=== PATIENT | female | born 1975 | race Caucasian/White ===

== ENCOUNTER 2019-02-17 11:41 | Inpatient (IN) ==
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
[2019-02-17 12:22] LABS: Basophils # 0.1 K/mcL (0.0-0.2); Basophils % 0.6 %; Eosinophils # 0.1 K/mcL (0.0-0.6); Eosinophils % 1.3 %; Hematocrit 37.3 % (35.3-44.9); Hemoglobin 10.9 g/dL (11.5-15.4); Immature Granulocytes % 0.3 % (0-4); Lymphocytes # 1.4 K/mcL (0.6-4.6); Lymphocytes % 18.3 %; Mean Corpuscular HGB Conc 29.2 g/dL (31.6-35.5); Mean Corpuscular Hemoglobin 21.9 pg (28.0-33.3); Mean Corpuscular Volume 74.9 fL (83.0-100.0); Mean Platelet Volume 12.3 fL (9.4-12.4); Monocytes # 0.4 K/mcL (0.0-1.3); Monocytes % 5.5 %; Neutrophils # 5.8 K/mcL (1.6-8.9); Platelet Count 290 K/mcL (140-400); Red Blood Count 4.98 M/mcL (3.82-4.97); Red Cell Distribution Width 15.9 % (11.5-14.5); White Blood Count 7.9 K/mcL (4.3-11.1)
[2019-02-17 12:43] LABS: Acetaminophen < 10 mcg/mL (10-20); BUN/Creatinine Ratio 16 (6-26); Blood Urea Nitrogen 13 mg/dL (6-20); Calcium 9.6 mg/dL (8.6-10.3); Carbon Dioxide 22 mEq/L (23-29); Chloride 102 mEq/L (98-107); Ethanol < 10 mg/dL (Less than 10); Glucose 81 mg/dL (70-105); Osmolality,Calculated 283 (280-300); Potassium 3.4 mEq/L (3.5-5.1); Salicylate < 2.5 mg/dL (15.0-30.0); Sodium 137 mEq/L (136-145); eGFR For African Americans > 60 (> 60); eGFR For Non-African Americans > 60 (> 60)
[2019-02-17 13:47] LABS: Bilirubin,Urine Negative (Negative); Blood,Urine Negative (Negative); Clarity,Urine Clear (Clear); Color,Urine Yellow (Yellow); Glucose,Urine (UA) Normal (Normal); Ketones,Urine 40 mg/dL (Negative); Leukocyte Esterase,Urine Negative (Negative); Nitrite,Urine Negative (Negative); PH,Urine 5.5 pH Units (5.0-8.0); Protein,Urine Negative (Neg-Trace); Specific Gravity,Urine 1.009 (1.010-1.025); Urobilinogen,Urine Normal (Normal)
[2019-02-17 13:53] LABS: Amphetamine Screen,Urine Negative ng/mL (Cutoff=1000); Barbiturate Screen,Urine Negative ng/mL (Cutoff=200); Benzodiazepines Screen,Urine Negative ng/mL (Cutoff=200); Cannabinoid Screen,Urine Negative ng/mL (Cutoff = 50); Cocaine Screen,Urine Negative ng/mL (Cutoff= 300); Opiate Screen,Urine Negative ng/mL (Cutoff=300); Phencyclidine Screen,Urine Negative ng/mL (Cutoff=25)
[2019-02-17] MEDS ORDERED: Mag Hydrox/Al Hydrox/Simeth 30 ML UDC PO PRN (14:26)
[2019-02-17] MEDS ORDERED: MOM Conc 10 ML UD.LIQ PO PRN (14:26)
[2019-02-17] MEDS ORDERED: Haloperidol Lactate 5 MG/ML VIAL IM PRN (14:26)
[2019-02-17] MEDS ORDERED: *HR* LORazepam 2 MG/ML VIAL IM PRN (14:26)
[2019-02-17] MEDS ORDERED: *HR* LORazepam 1 MG TABLET PO PRN (14:26)
[2019-02-17] MEDS: Acetaminophen 325 MG TABLET PO PRN (21:34)
[2019-02-17] MEDS: traZODone 50 MG TABLET PO PRN (21:34)
[2019-02-17] MEDS: hydrOXYzine pamoate 25 MG CAPSULE PO PRN (21:34)
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
--- NOTE | 2019-02-19 11:14 | Psychiatry Progress Note ---
Date of Encounter: 02/19/19 Time of Encounter: 10:55 Subjective Interval history: Patient tolerated Zoloft. She continues to report depression with sad mood, decreased interest, feelings of guilt and worthlessness, low energy, and suicidal ideations. She is scared about what her future holds. 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 She says her family tells her to kill herself. Review of Systems Psychiatric: Reports: depression, anxiety, abnormal sleep pattern, suicidal ideation, anhedonia. Denies: homicidal ideation, auditory hallucinations, visual hallucinations Results - Vital Signs Vital Signs: Temp Pulse Resp BP Pulse Ox 97.4 F L 110 14 138/91 97 02/19/19 09:00 02/19/19 09:00 02/19/19 09:00 02/19/19 09:00 02/19/19 09:00 - Impressions ITS Impressions Head CT 02/17/19 12:17 IMPRESSION: No acute intracranial abnormality. Subcutaneous soft tissue swelling of the right forehead scalp. D/ / Ramy Sanchez MD / Ramy Sanchez MD Interpreting Provider: Ramy Sanchez MD Assessment and Plan (1) Major depressive disorder, recurrent, severe with psychotic features Current visit: No Status: Acute Plan: Continue hospitalization, Close observation, Suicide Precautions per unit protocol, Encourage participation in unit milieu, Group Therapy, Monitor sleep, Monitor appetite Additional Plan: Increase Zoloft to 50 mg by mouth every morning, encourage group therapy, Risks, benefits, side effects, alternatives discussed w/pt: Yes Patient agreeable to treatment: Yes Consult Discharge Plan - Plan Psychiatry Exam - Constitutional Vitals: Temp Pulse Resp BP Pulse Ox 97.4 F L 110 14 138/91 97 02/19/19 09:00 02/19/19 09:00 02/19/19 09:00 02/19/19 09:00 02/19/19 09:00 General appearance: disheveled - Musculoskeletal Gait: slow Station: stooped Strength & Tone: mild weakness - Psychiatric Patient Orientation: Yes Person, Yes Time, Yes Place, Yes Circumstance Level of alertness: Alert Behavior: tearful Psychomotor activity: Slowed Eye Contact: Minimal Contact Mood Description: Depressed Patient description of mood: Sad Affect description: tearful, dysphoric Speech Volume: Soft/Quiet Speech pattern: slowed Language & Vocabulary: consistent with education Thought Process: Linear, Goal Oriented Thought Content: Yes Suicidal ideation, No Homicidal ideation, No Overt delusions Perceptual Disturbances: No Auditory hallucinations, No Visual hallucinations Attention Span Ability: Capable of Focused Attention Memory Description: Grossly Intact Patient Reliability: Reliable Historian Fund of knowledge: Yes abstraction ability, Yes aware of current events Intelligence Estimate: Average Judgment: Limited Insight: Minimal
[2019-02-20] MEDS ORDERED: Fluconazole 100 MG TABLET PO ONE (09:21)
--- NOTE | 2019-02-20 09:21 | Psychiatry Progress Note ---
Date of Encounter: 02/20/19 Time of Encounter: 07:40 Subjective Interval history: Patient is reporting urinary discomfort with urgency as well as a discharge and odor. She says in the past she has had both urinary tract infections as well as chronic yeast infections for which she often gets Diflucan. She reports sad mood, decreased interest, feelings of guilt and worthlessness, low energy. She is mostly withdrawn to her room. She reports ongoing hopelessness and feeling there is no point in living. She is scared to have to go back to the [employer]. She reports 10 out of 10 anxiety and 8 out of 10 depression. Review of Systems Psychiatric: Reports: depression, anxiety, abnormal sleep pattern, suicidal ideation, anhedonia. Denies: homicidal ideation, auditory hallucinations, visual hallucinations Results - Vital Signs Vital Signs: Temp Pulse Resp BP Pulse Ox 97.8 F 88 16 137/85 97 02/19/19 20:53 02/19/19 20:53 02/19/19 20:53 02/19/19 20:53 02/19/19 20:53 - Impressions ITS Impressions Head CT 02/17/19 12:17 IMPRESSION: No acute intracranial abnormality. Subcutaneous soft tissue swelling of the right forehead scalp. D/ / Ramy Sanchez MD / Ramy aSnchez MD Interpreting Provider: Ramy Sanchez MD Assessment and Plan (1) Major depressive disorder, recurrent, severe with psychotic features Current visit: No Status: Acute Plan: Continue hospitalization, Close observation, Suicide Precautions per unit protocol, Encourage participation in unit milieu, Group Therapy, Monitor sleep, Monitor appetite Additional Plan: Zoloft was increased to 50 mg daily yesterday. We will continue this and consider further increase if needed. Encourage group attendance. We will check urinalysis to see if she has a UTI. We will go ahead and presumptively treated with Diflucan 150 by mouth 1 for possible yeast infection. Risks, benefits, side effects, alternatives discussed w/pt: Yes Patient agreeable to treatment: Yes Consult Discharge Plan - Plan Referrals: NONE,PCP [Primary Care Provider] - Psychiatry Exam - Constitutional Vitals: Temp Pulse Resp BP Pulse Ox 97.8 F 88 16 137/85 97 02/19/19 20:53 02/19/19 20:53 02/19/19 20:53 02/19/19 20:53 02/19/19 20:53 General appearance: disheveled - Musculoskeletal Gait: slow, unsteady Station: stooped Strength & Tone: mild weakness - Psychiatric Patient Orientation: Yes Person, Yes Time, Yes Place, Yes Circumstance Level of alertness: Alert Behavior: anxious Psychomotor activity: Slowed Eye Contact: Minimal Contact Mood Description: Depressed, Anxious Patient description of mood: Anxious Affect description: dysphoric, anxious Speech Volume: Soft/Quiet Speech pattern: slowed, mumbled Thought Process: Goal Oriented Thought Content: Yes Suicidal ideation Perceptual Disturbances: No Auditory hallucinations, No Visual hallucinations Attention Span Ability: Capable of Focused Attention Memory Description: Grossly Intact Patient Reliability: Reliable Historian Fund of knowledge: Yes abstraction ability, Yes aware of current events Intelligence Estimate: Average Judgment: Limited Insight: Minimal
[2019-02-20 11:52] LABS: Bilirubin,Urine Negative (Negative); Blood,Urine Trace (Negative); Clarity,Urine Cloudy (Clear); Color,Urine Yellow (Yellow); Glucose,Urine (UA) Normal (Normal); Ketones,Urine Negative (Negative); Leukocyte Esterase,Urine Large (Negative); Nitrite,Urine Negative (Negative); Protein,Urine Negative (Neg-Trace); Specific Gravity,Urine 1.011 (1.010-1.025); Urobilinogen,Urine Normal (Normal)
[2019-02-20 12:02] LABS: RBC,Urine 0-3 per hpf (0-3); Squamous Epithelial Cell,Urine Few per lpf (None-Few); WBC,Urine 30-50 per hpf (0-3)
[2019-02-20 12:03] LABS: Bacteria,Urine Moderate per hpf (None-Few)
[2019-02-20] MEDS: Acetaminophen 325 MG TABLET PO PRN (18:53)
[2019-02-20] MEDS: hydrOXYzine pamoate 25 MG CAPSULE PO PRN (21:12)
[2019-02-20] MEDS: traZODone 50 MG TABLET PO PRN (21:12)
--- NOTE | 2019-02-21 11:48 | Psychiatry Progress Note ---
Date of Encounter: 02/21/19 Time of Encounter: 11:46 Subjective Interval history: Client reports she is feeling much better. Continues to endorse anxiety/panic attacks but reports depression has improved. Now denying SI, intent, or plan. Feels Zoloft is helping. Discussed prn Vistaril for acute anxiety and client states she will try this today. Sleeping well with Trazodone. Homeless but willing to go to a group home. "I don't think I'm better than anybody else." Thinks she may be ready for discharge tomorrow. Review of Systems Constitutional: Denies: fever, chills, weakness, weight change Eyes: Denies: eye pain, vision change Ears, Nose, Throat: Denies: ear pain, throat pain, dental pain, hearing loss, congestion Cardiovascular: Denies: chest pain, palpitations, dyspnea on exertion Respiratory: Denies: cough, dyspnea, wheezes Gastrointestinal: Denies: abdominal pain, nausea, vomiting, diarrhea, constipation Musculoskeletal: Denies: joint swelling, joint pain Neurological: Denies: headache, weakness, numbness, memory loss Psychiatric: Reports: depression, anxiety, abnormal sleep pattern, suicidal ideation, anhedonia. Denies: homicidal ideation, auditory hallucinations, visual hallucinations Results - Vital Signs Vital Signs: Temp Pulse Resp BP Pulse Ox 97.3 F L 95 18 129/78 99 02/21/19 09:00 02/21/19 09:00 02/21/19 09:00 02/21/19 09:00 02/21/19 09:00 - Labs Labs: Laboratory Results - last 24 hr 02/20/19 11:45 Urine Color Yellow Urine Clarity Cloudy A Urine pH 6.0 Ur Specific [place] 1.011 Urine Protein Negative Urine Glucose (UA) Normal Urine Ketones Negative Urine Blood Trace H Urine Nitrite Negative Urine Bilirubin Negative Urine Urobilinogen Normal Ur Leukocyte Esterase Large H Urine Microscopic RBC 0-3 Urine Microscopic WBC 30-50 H Ur Squamous Epith Cells Few Urine Bacteria Moderate H Ur Culture Indicated? YES A - Impressions ITS Impressions Head CT 02/17/19 12:17 IMPRESSION: No acute intracranial abnormality. Subcutaneous soft tissue swelling of the right forehead scalp. D/ / Ramy Sanchez MD / Ramy Sanchez MD Interpreting Provider: Ramy Sanchez MD Assessment and Plan (1) Major depress dis, severe Current visit: Yes Status: Acute Plan: Continue hospitalization, Close observation, Suicide Precautions per unit protocol, Encourage participation in unit milieu, Group Therapy, Monitor sleep, Monitor appetite Risks, benefits, side effects, alternatives discussed w/pt: Yes Patient agreeable to treatment: Yes Consult Discharge Plan - Plan Referrals: [facility] Sol[email or web address] [Outside] - 03/09/19 10:30 am (Your appointment is with Mike Butler for counseling. Please bring the packet of information given to you at discharge from , with you to this appointment. ) Psychiatry Exam - Constitutional Vitals: Temp Pulse Resp BP Pulse Ox 97.3 F L 95 18 129/78 99 02/21/19 09:00 02/21/19 09:00 02/21/19 09:00 02/21/19 09:00 02/21/19 09:00 General appearance: obese - Musculoskeletal Gait: slow Station: relaxed Strength & Tone: normal for patient - Psychiatric Patient Orientation: Yes Person, Yes Time, Yes Place Level of alertness: Alert Behavior: calm, cooperative Psychomotor activity: Normal Eye Contact: Maintains Eye Contact Mood Description: Anxious Affect description: congruent with mood Speech Volume: Normal Speech pattern: normal rate, normal rhythm, normal tone, fluent, spontaneous Language & Vocabulary: consistent with education Thought Process: Linear, Goal Oriented Thought Content: No Suicidal ideation, No Homicidal ideation, No Overt delusions Perceptual Disturbances: No Auditory hallucinations, No Visual hallucinations Attention Span Ability: Capable of Focused Attention Memory Description: Grossly Intact Patient Reliability: Reliable Historian Fund of knowledge: Yes abstraction ability, Yes aware of current events Intelligence Estimate: Average Judgment: Fair Insight: Partial
[2019-02-21] MEDS: hydrOXYzine pamoate 25 MG CAPSULE PO PRN (16:13)
[2019-02-21] MEDS: traZODone 50 MG TABLET PO PRN (20:26)
[2019-02-22] MEDS: hydrOXYzine pamoate 25 MG CAPSULE PO PRN (08:56)
[2019-02-22 09:15] VITALS: BP 131/87
--- NOTE | 2019-02-22 12:43 | Discharge Summary ---
Date of Encounter: 02/22/19 Time of Encounter: 12:41 Diagnosis - Discharge Diagnosis (1) Major depress dis, severe Status: Acute Medications - Discharge Medications Prescriptions: traZODone [TraZODone] 50 mg PO HS PRN #30 tablet PRN Reason: Insomnia Transmission Status: Pending to [facility] hydrOXYzine pamoate [Vistaril] 25 mg PO TID PRN #90 capsule PRN Reason: Anxiety Transmission Status: Pending to [facility] Sertraline [Zoloft] 50 mg PO DAILY #30 tablet Transmission Status: Pending to [facility] Sertraline [Zoloft] 50 mg PO DAILY #30 tablet 02/22/19 [Rx] hydrOXYzine pamoate [Vistaril] 25 mg PO TID PRN #90 capsule 02/22/19 [Rx] traZODone [TraZODone] 50 mg PO HS PRN #30 tablet 02/22/19 [Rx] Allergy/AdvReac Type Severity Reaction Status Date / Time No Known Allergies Allergy Verified 02/17/19 14:33 Results Procedures and tests throughout hospitalization: Completed Lab Orders Category Date Time Status Acetaminophen Stat Lab 02/17/19 12:00 Completed Basic Metabolic Panel Stat Lab 02/17/19 12:00 Completed Complete Blood Count [HEME] Stat Lab 02/17/19 12:00 Completed Drug Screen, Urine [UCHEM] Stat Lab 02/17/19 13:33 Completed Ethanol Stat Lab 02/17/19 12:00 Completed Test Result, Urine [URIN] Stat Lab 02/17/19 13:33 Completed Salicylate Stat Lab 02/17/19 12:00 Completed Urinalysis Reflex Cult & Micro [URIN] Routine Lab 02/20/19 11:45 Completed Urinalysis reflex Microscopic [URIN] Stat Lab 02/17/19 13:33 Completed Completed Imaging Orders Category Date Time Status CT head/brain wo con [CT] Stat Cat Scan 02/17/19 11:52 Completed Completed Microbiology Orders Category Date Time Status Culture,Urine [RM] Routine Lab 02/20/19 11:45 Completed Streptococcus A Rapid Test [RM] Stat Lab 02/17/19 12:15 Completed Provider Date of admission: 02/18/19 12:08 Primary care physician: PCP NONE Consults: 02/17/19 16:21 Consult to Pastoral Services [CONS] Routine Comment: Discharging clinician: Nanci Saavedra Psychiatry Exam - Constitutional Vitals: Temp Pulse Resp BP Pulse Ox 97.5 F L 72 14 131/87 99 02/22/19 09:00 02/22/19 09:00 02/22/19 09:00 02/22/19 09:00 02/22/19 09:00 General appearance: age & developmentally appropriate, well-groomed, well- nourished - Musculoskeletal Gait: normal Station: relaxed Strength & Tone: normal for patient - Psychiatric Patient Orientation: Yes Person, Yes Time, Yes Place Level of alertness: Alert Behavior: calm, cooperative Psychomotor activity: Normal Eye Contact: Maintains Eye Contact Mood Description: Anxious Affect description: congruent with mood Speech Volume: Normal Speech pattern: normal rate, normal rhythm, normal tone, fluent, spontaneous Language & Vocabulary: consistent with education Thought Process: Linear, Goal Oriented Thought Content: No Suicidal ideation, No Homicidal ideation, No Overt delusions Perceptual Disturbances: No Auditory hallucinations, No Visual hallucinations Attention Span Ability: Capable of Focused Attention Memory Description: Grossly Intact Patient Reliability: Reliable Historian Fund of knowledge: Yes abstraction ability, Yes aware of current events Intelligence Estimate: Average Judgment: Fair Insight: Partial Hospital Course Hospital course: Ms. Leon is a 43 year old female who was admitted for SI. She was started on Zoloft with prn Trazodone and Vistaril with good clinical effect. Mood has improved. Today client is denying any further SI, intent, or plan. Denying HI/AH/VH. States she still has some anxiety but aware that will take time to improve/resolve. Eager to be linked with outpatient follow-up. Has learned new coping skills. Attends and participates in groups. Eating and sleeping well. Bright, reactive, and future oriented today. Total time spent with client greater than 30 minutes. Patient was educated of her diagnosis and the risks, benefits, and side effects of this treatment and alternative treatment options and was monitored for responsiveness and side effects. Mood, anxiety, sleep, appetite, and interest improved, as did future orientation. Self-harm thoughts subsided, thinking cleared, psychosis resolved, and mood stabilized. Patient was able to attend both individual and group therapy sessions as well as meeting with the psychiatrist daily and urged to discuss any medication or treatment issues or other concerns. The patient was educated primarily by verbal means about their diagnosis and manifestations in their life. The option for treatment including group and individual therapy programming was offered to the patient in the use of medications with all their potential risks, benefits, and side effects were discussed with the patient at length. The patient was given the opportunity to ask questions and was noted to participate in the treatment in the planning process. The patient felt ready and eager to be discharged from the inpatient psychiatric unit to continue on with treatment as an outpatient. The patient agreed that she is safe for this disposition. The patient was considered to be able to participate in informed consent and decision making with respect to medical, legal, and financial issues of the time of discharge. At the time of discharge the patient adamantly denied any concerns for lethality including suicidal or homicidal thoughts ideations or plans and was future oriented toward ongoing mental health care, medical follow-up and sobriety. - Time Spent with Patient Total time spent providing and/or coordinating discharge services: Greater than 30 minutes Assessment and Plan - Patient/Caregiver Discharge Instructions Activity: resume usual activities as tolerated Diet: low fat, low cholesterol - Follow up Plan Follow up with: Richard [facility] [Outside] - 03/09/19 10:30 am (Your appointment is with Mike Butler for counseling. Please bring the packet of information given to you at discharge from , with you to this appointment. ) Functional capacity at discharge: independent ambulation Overall status at discharge: Stable Disposition: Home, Self-Care Quality - Multiple Antipsychotics Patient discharged on 2 or more antipsychotic medications: No Procedures - Procedures Procedures: Medication Management, Crisis Stabilization, Supportive Therapy, Group Therapy
== END 2019-02-22 16:25 | disposition home or self-care (01) | DRG 751 ==
LOC: 1ANU 11:41 → EMEROOARM 11:41 → 1ANU 15:25
PROVIDERS: ADMIT Psychiatry & Neurology Psychiatry; ATTEND Psychiatry & Neurology Psychiatry